=== PATIENT | male | born 1955 | race Caucasian/White ===

== ENCOUNTER 2023-07-03 10:00 | Outpatient (RCR) | payer MEDICARE, SELFPAY ==
--- NOTE | 2023-06-06 16:53 | OPREHPOC ---
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 Target Visit 8 PT Goal 2 Goal Pt to be able to lift 5lb overhead without an increase in symptoms. Target Visit 8 PT Problem 4 PT Problem #4 Impaired Sensation PT Goal 1 Goal Pt to decline altered sensation down the arm in the last week Target Visit 8 PT Problem 5 PT Problem #5 Pain PT Goal 1 Goal Pt to be able to sleep through the night without waking d/t pain Target Visit 8
--- NOTE | 2023-06-06 16:53 | PTOPEVAL1 ---
Assessment and note entered by Mike Rees, PT, DPT Evaluation Information Assessment Status Evaluation Diagnosis cervical radiculopathy Onset 2 weeks Subjective Information Pt reports he has a pinched nerve in his neck that is sending pain all the way down his arm down into his L little finger. Pt states this pain has been going on for 2 weeks without change. He declines a JENNIFER and states he just felt the pain when he woke up one morning. He reports a loss of strength in his L hand as well. He reports very low and sporadic pain in the neck, he states he has had this pain most his life but it has been mild enough to live with it. Pt is retired. 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 Reported Pain Level Pain Score 0: Self Report Assessment PT Clinical Summary Dipak presents to therapy today for his initial evaluation with a diagnosis of cervicalgia. Today he demonstrates decreased cervical ROM in all directions with radicular symptoms down his L arm all the way into his fingers, significantly decreasing his L excel analyst strength compared to his. His symptoms decrease some with passive cervical distraction. He also demonstrates a forward head and rounded shoulders in sitting. Skilled therapy services are indicated to improve UE strength, to decreased radicular symptoms, to manage pain, and to return to PLOF. Plan of Care Interventions Electrical Stimulation,Hot Pack/Cold Pack,Manual Therapy,Mechanical Traction,Neuro Re-education, Patient/Caregiver Educati,Therapeutic Activities, Therapeutic Exercise PT Services Indicated Yes Treatment Frequency and 2x/wk for 8 visits Duration These treatments will address the objective and functional deficits as defined above. The patient will be advanced safely and appropriately in order for the patient to progress towards his/her prior level of function. Additional exercises will be introduced and as well as a comprehensive home exercise program upon discharge, if needed, ?to ensure carryover of functional gains achieved in the clinic. This treatment plan has been reviewed and agreement upon by the patient.
--- NOTE | 2023-07-03 10:25 | PTOPDC ---
Assessment and note entered by Mike Rees, PT, DPT Evaluation Information Assessment Status Discharge Diagnosis cervical radiculopathy Onset 2 weeks Subjective Information Pt states he almost always has a little bit of numbness in his little finger and lateral side of his hand. He states he will sporadically get numbness other places in his arm, he states the stretches almost always alleviate the pain. He states he still has some tightness in his upper shoulders and neck but without much pain. Pt reports 90% improvement in overall symptoms. Pt states he has been able to return to playing his guitar and sleep without pain. Reported Pain Level Pain Score 0: Self Report Assessment PT Clinical Summary Dipak presents to therapy today for his progress report following 6 visits of skilled therapy to treat his cervicalgia with radiculopathy. Today he improvements in all of his subjective including pain and numbness. He demonstrates minimal improvements in cervical ROM. He has met or progressed well towards all of his therapy goals and will be discharged at this time. Plan of Care PT Services Indicated No
== END 2023-07-03 11:12 | disposition home or self-care (01) ==
LOC: ANHGOSHPT 10:00
PROVIDERS: PCP Family Medicine; Visit Provider Nurse Practitioner Family
DX: M25.519 Pain in unspecified shoulder (principal); M54.2 Cervicalgia; M79.603 Pain in arm, unspecified
CPT/HCPCS: 97012; 97110; 97140; 97161; 97530

== ENCOUNTER 2023-11-21 04:00 | Emergency (ER) | payer MEDICARE, SELFPAY ==
[2023-11-21] VITALS (14 sets, daily range): BP systolic 100–149; BP diastolic 67–79; PULSE 66–95; RESP 14–18; TEMP 36.6; O2SAT 95–100
--- NOTE | ~2023-11-21 | CT_ITS ---
Noncontrast CT scan of the cervical spine Technique: Multiple contiguous axial [address] images of the cervical spine were obtained and rec onstructed in 2D sagittal and coronal planes on the acquisition scanner. Dose reduction technique was used on this scan by utilizing automated exposure control, adjustment of the mA and/or kV according to patient size. The dose-length product (DLP) was 451.25 mGy-cm. Clinical History: Pain Findings: No fractures or dislocations. There is mild degenerative disc narrowing at C5-C6 and C6-C7 . There is probable bilateral neural foraminal narrowing at C5-C6 with mild disc ossify complex prese nt. No prevertebral soft tissue swelling. Impression: No fracture or subluxation of the cervical spine. Reviewed, dictated and finalized at [facility]. NNIAL HOUSE MANAGER Impression: No fracture or subluxation of the cervical spine.
--- NOTE | ~2023-11-21 | CT_ITS ---
Non-contrast Head CT History: Status post fall Technique: Axial non-contrast imaging of the brain was performed. Dose reduction technique was used on this scan by utilizing automated exposure control and iterative reconstruction technique. The dose -length product (DLP) was 605.33 mGy-cm. Findings: There is no evidence of intracranial hemorrhage, mass lesion, or acute infarct. Brain par enchyma appears normal. The ventricles and subarachnoid spaces are normal in size. The calvarium ap pears normal. The visualized paranasal sinuses and mastoid air cells are clear. Impression: No significant abnormality seen. Reviewed, dictated and finalized at location . INTELLIGENCE SPECIALIST Impression: No significant abnormality seen.
--- NOTE | 2023-11-21 06:49 | PC.NURSE ---
Pt states he was getting up from the toilet after having a BM and fell, hitting head. Thinks he was lightheaded but does not recall all events. States feels fine now. Pt axox4. Has approx 3cm lac to above R eyebrow. Bleeding controlled at this time.
--- NOTE | 2023-11-21 06:56 | ECG_ITS ---
Measurements Intervals [place] Rate: 74 P: 66 ND: 172 QRS: 48 QRSD: 111 T: 47 QT: 373 QTc: 415 Interpretive Statements SINUS RHYTHM NORMAL ELECTROCARDIOGRAM NO PREVIOUS ECG AVAILABLE FOR COMPARISON Electronically Signed On 11-21-2023 7:17:59 CARPENTRY TEACHER by Yonas Schmitt M.D.
--- NOTE | 2023-11-21 07:14 | PC.NURSE ---
Report to GEOFF Smith
--- NOTE | 2023-11-21 07:20 | ED.FALL ---
HPI - Fall General Chief Complaint: Fall Stated Complaint: fall Time Seen by Provider: 11/21/23 07:17 68 years old white male came to the emergency room by private car because of a fall. 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 Denies loss of consciousness or other injuries. His last tetanus shot within 5 years. Source: patient Related Data Home Medications Medication Instructions Recorded Confirmed cholecalciferol (vitamin D3) 50 50 mcg PO DAILY 09/24/23 11/05/23 mcg (2,000 unit) tablet fexofenadine 180 mg tablet 180 mg PO DAILY 09/24/23 11/05/23 (Bridget Allergy) Allergies Allergy/AdvReac Type Severity Reaction Status Date / Time No Known Allergies Allergy Verified 11/05/23 08:49 Review of Systems Review of Systems: All systems reviewed & are unremarkable except as noted in HPI and below PMFSH Past Medical History Medical History Anxiety Environmental allergies Erectile dysfunction Gout History of colonic polyps Hyperlipidemia Vitamin D deficiency Surgical History Surgical History History of hernia repair 9 - congenital inguinal hernia repair Family History Family History Other Family history of coronary artery disease Family history of pancreatic cancer Social History Social History Smoking status: Former smoker Tobacco type: cigarettes Second hand tobacco smoke exposure: No Smoking end date: 10/20/86 Alcohol intake: current Drinks per week: 21 Alcohol use details: 3 drinks daily Substance use: current Substance use type: marijuana Other substance usage details: smokes marijuana 3 times weekly Lack of Transportation: No Lack of Food: Never True Current Housing: I Have Housing Concerned About Future Housing: No Difficulty Paying Gas/Electric Bills: No Difficulty Paying for Meds: No Currently Unemployed: No Education: Master's Degree or Higher Difficulty w/ Childcare or Family Care: No Living arrangements: with family Occupation/Education: retired Gender identity (if verbalized by the patient): Male Spiritual care concerns: No Agree to blood products: Yes Exam Narrative: General appearance: Well-developed, well-nourished Skin: Normal color Head: Normocephalic, nontraumatic Eyes: Clear conjunctiva, 2 cm laceration right eyebrow, no active bleeding ENT: Oropharynx normal, ears normal, nose normal Neck: Supple, nontender Chest and respiratory: Airway patent, no respiratory distress, no accessory muscle use Heart: Regular rate/rhythm Abdomen: Soft, nontender, no organomegaly, quiet bowel sounds Vascular: Normal peripheral pulses, normal capillary refill. Musculoskeletal: Normal range of motion, nontender back Neurologic: Alert and oriented ?3, EXPRESSIVE THERAPIST is normal as tested, no gross motor deficit Course Vital Signs Vital signs: Vital Signs Temperature 36.6 C 11/21/23 04:05 Pulse Rate 73 11/21/23 04:05 Respiratory Rate 16 11/21/23 04:05 Blood Pressure 100/67 11/21/23 04:05 Pulse Oximetry 95 11/21/23 04:05 Oxygen Delivery Room Air 11/21/23 04:05 Temperature 36.6 C 11/21/23 04:05 Pulse Rate 76 11/21/23 07:01 Respiratory Rate 14 11/21/23 07:01 Blood Pressure 132/71 11/21/23 07:01 Pulse Oximetry 99 11/21/23 07:01 Oxygen Delivery Room Air 11/21/23 04:05
[2023-11-21 07:21] LABS: Basophils Absolute Auto 0.1 K/mm3 (0.0-0.1); Basophils Percent Auto 0.4 % (0.2-1.2); Eosinophils Percent Auto 0.3 % (0-4.4); Hematocrit 46.3 % (42.0-52.0); Hemoglobin 16.1 g/dL (14.0-18.0); Immature Granulocyte Absolute 0.05 K/mm3 (0.00-0.031); Immature Granulocyte Percent A 0.4 % (0-0.5); Lymphocytes Absolute Auto 1.15 K/mm3 (0.9-3.2); Mean Corpuscular HGB Conc 34.8 g/dl (32-36); Mean Corpuscular Hemoglobin 31.8 pg (26-34); Mean Corpuscular Volume 91.3 fl (80-100); Mean Platelet Volume 10.1 fl (7.4-10.4); Monocytes Absolute Auto 0.5 K/mm3 (0.1-0.6); Monocytes Percent Auto 4.1 % (2.6-8.5); Neutrophils Absolute Auto 9.7 K/mm3 (1.3-6.7); Neutrophils Percent Auto 84.8 % (45.5-73.1); Platelet Count Result 199 k/mm3 (150-375); Red Blood Count 5.07 M/mm3 (4.6-6.20); Red Cell Distribution Width 12.1 % (11.5-14.5); White Blood Count 11.5 K/mm3 (4.5-10.0)
[2023-11-21 07:37] LABS: Alanine Aminotransferase 31 U/L (6-50); Albumin Level 4.4 g/dL (3.5-5.1); Alkaline Phosphatase 95 U/L (38-126); Anion Gap 8 mmol/L (8-16); Aspartate Amino Transferase 32 U/L (17-59); Bilirubin,Total 1.2 mg/dL (0.2-1.3); Blood Urea Nitrogen 25 mg/dL (9-20); Calcium 9.4 mg/dL (8.4-10.2); Carbon Dioxide 28 mmol/L (22-30); Chloride 105 mmol/L (98-107); Estimated CRCL calculation 70 ml/min; Estimated Glomerular Filt Rate > 60; Glucose 126 mg/dL (65-110); Sodium 141 mmol/L (137-145)
[2023-11-21 07:46] LABS: Potassium 4.8 mmol/L (3.4-5.0)
--- NOTE | 2023-11-21 08:30 | PC.NURSE ---
Pt declined tetanus shot stated he was up to date and had it 4 years ago.
[2023-11-21] MEDS: LIDO 1%/EPINEPHRINE 1:100,000 20 ML VIAL (09:33)
== END 2023-11-21 09:59 | disposition home or self-care (01) ==
LOC: ANHED 09:30
PROVIDERS: Emergency Medicine; Emergency Provider Emergency Medicine; PCP Family Medicine
DX: S01.111A Laceration without foreign body of right eyelid and periocular area, initial encounter (principal); E78.5 Hyperlipidemia, unspecified; E55.9 Vitamin D deficiency, unspecified; M10.9 Gout, unspecified; Z86.010 Personal history of colon polyps; Z87.891 Personal history of nicotine dependence; W18.39XA Other fall on same level, initial encounter
CPT/HCPCS: 12011; 36415; 70450; 72125; 80053; 85025; 93005; 99284

== ENCOUNTER 2023-12-02 01:30 | Day surgery (SDC) | payer MEDICARE, SELFPAY ==
[2023-11-05 08:51] VITALS: BMI 27.8
--- NOTE | 2023-11-28 11:29 | SUR.PREOP ---
Patient called regarding upcoming procedure. VOICEMAIL LEFT REGARDING UPCOMING APPOINTMENT. INSTRUCTED TO CALL WITH ANY QUESTIONS. CONFIRMED TIME AND DATE.
--- NOTE | 2023-11-29 13:23 | PM.HPGS ---
History of Present Illness History of Present Illness Consent: Risks, benefits, and alternatives have been discussed and questions answered. Patient agrees to proceed with procedure. Chief complaint: History colon polyps Narrative: Dipak Frost is a 68 year old male referred for colon cancer screening. A little over 5 years ago he had a small polyp removed Review of Systems Review of Systems: All systems reviewed & are unremarkable except as noted in HPI and below PMFSH Past Medical History Medical History Anxiety Environmental allergies Erectile dysfunction Gout History of colonic polyps Hyperlipidemia Vitamin D deficiency Surgical History Surgical History History of hernia repair 1958 - congenital inguinal hernia repair Family History Family History Other Family history of coronary artery disease Family history of pancreatic cancer Social History Social History Smoking status: Former smoker Tobacco type: cigarettes Second hand tobacco smoke exposure: No Smoking end date: 10/20/86 Alcohol intake: current Drinks per week: 21 Alcohol use details: 3 drinks daily Substance use: current Substance use type: marijuana Other substance usage details: smokes marijuana 3 times weekly Lack of Transportation: No Lack of Food: Never True Current Housing: I Have Housing Concerned About Future Housing: No Difficulty Paying Gas/Electric Bills: No Difficulty Paying for Meds: No Currently Unemployed: No Education: Master's Degree or Higher Difficulty w/ Childcare or Family Care: No Living arrangements: with family Occupation/Education: retired Gender identity (if verbalized by the patient): Male Spiritual care concerns: No Agree to blood products: Yes Meds Home Medications and Allergies Home Medications Medication Instructions Recorded Confirmed Type alprazolam 0.25 mg tablet 0.25 mg PO BID PRN anxiety #60 tabs 09/04/22 12/02/23 Rx cholecalciferol (vitamin D3) 50 50 mcg PO DAILY 09/24/23 12/02/23 History mcg (2,000 unit) tablet fexofenadine 180 mg tablet 180 mg PO DAILY 09/24/23 12/02/23 History (Bridget Allergy) sildenafil 100 mg tablet 100 mg PO DAILY PRN sexual 09/24/23 11/25/23 Rx activity #30 tabs lisinopril 10 mg tablet 10 mg PO DAILY #90 tabs 10/21/23 12/02/23 Rx simvastatin 10 mg tablet 10 mg PO QHS #90 tabs 11/13/23 12/02/23 Rx indomethacin 75 mg 75 mg PO BID PRN gout flare ups 11/25/23 11/25/23 Rx capsule,extended release #30 caps Allergies Allergy/AdvReac Type Severity Reaction Status Date / Time No Known Allergies Allergy Verified 12/02/23 06:17 Exam Resp: Auscultation: clear to auscultation bilaterally Cardio: Rate: regular rate Rhythm: regular rhythm GI: GI Palp: Yes Soft to palpation and No Tenderness to palpation present (GI) Assessment and Plan Assessment and plan (1) Colon cancer screening: Code(s): Z12.11 - Encounter for screening for malignant neoplasm of colon Status: Acute Assessment and Plan: Colonoscopy with possible biopsy or polypectomy or cautery or injection of substances.
[2023-12-02 06:19] VITALS: BP 106/73; PULSE 88; RESP 18; TEMP 36.3; O2SAT 100; BMI 27.2
[2023-12-02] MEDS: LACTATED RINGERS 1,000 ML 150 ML IV CONT (06:21)
--- NOTE | 2023-12-02 07:20 | WPDANESEPPF ---
Anes - Initial Pre Proc Eval Procedure: Operation Date: 12/02/23 07:30 Proposed Procedures p Colonoscopy - Jerry Oglesby MD Date/Time: 12/02/23 07:20 Surgeon: Jerry Oglesby MD Pre Op Diagnosis: History colon polyps Patient Data Age: 68 Gender: M Height: 1.83 m Weight: 91.2 kg Last Vital Signs Temp 97.3 F L 12/02/23 06:19 Pulse 88 12/02/23 06:19 Resp 18 12/02/23 06:19 BP 106/73 12/02/23 06:19 Pulse Ox 100 12/02/23 06:19 O2 Del Method Room Air 12/02/23 06:19 Allergies Allergy/AdvReac Type Severity Reaction Status Date / Time No Known Allergies Allergy Verified 12/02/23 06:17 Home Medications Medication Instructions Recorded Confirmed Type alprazolam 0.25 mg tablet 0.25 mg PO BID PRN anxiety #60 tabs 09/04/22 12/02/23 Rx cholecalciferol (vitamin D3) 50 50 mcg PO DAILY 09/24/23 12/02/23 History mcg (2,000 unit) tablet fexofenadine 180 mg tablet 180 mg PO DAILY 09/24/23 12/02/23 History (Bridget Allergy) sildenafil 100 mg tablet 100 mg PO DAILY PRN sexual 09/24/23 11/25/23 Rx activity #30 tabs lisinopril 10 mg tablet 10 mg PO DAILY #90 tabs 10/21/23 12/02/23 Rx simvastatin 10 mg tablet 10 mg PO QHS #90 tabs 11/13/23 12/02/23 Rx indomethacin 75 mg 75 mg PO BID PRN gout flare ups 11/25/23 11/25/23 Rx capsule,extended release #30 caps Patient hx anesthesia problems: none Family hx anesthesia problems: none Results Review: All pre-operative results and documents have been reviewed as part of the pre-operative evaluation. [facility] Past Medical History Medical History Anxiety Environmental allergies Erectile dysfunction Gout History of colonic polyps Hyperlipidemia Vitamin D deficiency Surgical History Surgical History History of hernia repair 1958 - congenital inguinal hernia repair Family History Family History Other Family history of coronary artery disease Family history of pancreatic cancer Social History Social History Smoking status: Former smoker Tobacco type: cigarettes Second hand tobacco smoke exposure: No Smoking end date: 10/20/86 Alcohol intake: current Drinks per week: 21 Alcohol use details: 3 drinks daily Substance use: current Substance use type: marijuana Other substance usage details: smokes marijuana 3 times weekly Lack of Transportation: No Lack of Food: Never True Current Housing: I Have Housing Concerned About Future Housing: No Difficulty Paying Gas/Electric Bills: No Difficulty Paying for Meds: No Currently Unemployed: No Education: Master's Degree or Higher Difficulty w/ Childcare or Family Care: No Living arrangements: with family Occupation/Education: retired Gender identity (if verbalized by the patient): Male Spiritual care concerns: No Agree to blood products: Yes Anes - Eval Final PreProcedure Day of Procedure 12/02/23 07:20 Patient weight: normal Heart: regular rate and rhythm Lungs: clear to auscultation Airway: Mallampati scale class II Neurological: alert and oriented Last oral intake: >/= 8 hours ASA classification: II Emergent: no Anesthetic plan: proceed Anesthesia type and monitoring: general GIVS and standard monitoring Results Review: All pre-operative results and documents have been reviewed as part of the pre-operative evaluation. Informed Consent: The patient's anesthetic plan and its attendant risks and benefits were discussed with the patient/family/POA. Questions were solicited and answers provided to the satisfaction of the patient/family/POA.
[2023-12-02] MEDS: SIMETHICONE ORAL SUSPENSION 20 MG/0.3 ML 30 ML BOTTLE 0.6 ML IRRIGATION (07:36)
[2023-12-02 07:43] VITALS: BP 93/57; PULSE 68; RESP 14; O2SAT 96
[2023-12-02 07:53] VITALS: BP 115/72; PULSE 73; RESP 24; O2SAT 100
[2023-12-02 08:03] VITALS: BP 120/73; PULSE 68; RESP 19; O2SAT 100
== END 2023-12-02 08:10 | disposition home or self-care (01) ==
PROVIDERS: PCP Family Medicine; Visit Provider Internal Medicine Gastroenterology
PROC: 0DJD8ZZ Inspection of Lower Intestinal Tract, Via Natural or Artificial Opening Endoscopic (ICD-10-PCS; CPT 45378; principal; 2023-12-02 07:30)
DX: Z12.11 Encounter for screening for malignant neoplasm of colon (principal); K63.5 Polyp of colon; K64.8 Other hemorrhoids; E78.5 Hyperlipidemia, unspecified; E55.9 Vitamin D deficiency, unspecified; M10.9 Gout, unspecified; F41.9 Anxiety disorder, unspecified; Z87.891 Personal history of nicotine dependence; F12.90 Cannabis use, unspecified, uncomplicated
CPT/HCPCS: 45380; 88305; J2704; J7120

== ENCOUNTER 2024-11-10 08:06 | Outpatient (CLI) | payer MEDICARE, SELFPAY ==
[2024-12-02 14:18] VITALS: BMI 27.1
--- NOTE | 2024-12-02 14:18 | WPDHOMESLEEP ---
Sleep Study - Home Unattended Date of Study: 11/10/24 Ordering Provider: Marshall De Dios MD Interpreting Provider: Ana Paula Gentile, DO Home Sleep Study Type: Watch PAT Height: 1.83 m Weight: 90.718 kg Body Mass Index: 27.1 Neck Circumference (inches): 16 [place]: 12 Reason for Sleep Study Daytime hypersomnia Sleep History The patient is a 69-year-old male that had a sleep study ordered for evaluation of sleep apnea. The patient occasionally awakens from sleep short of breath. He occasionally awakens at night with heartburn, belching cough. He frequently snores loudly enough that others complain. He frequently has trouble sleeping when he has a cold. He rarely wakes up gasping for air throughout the night. He occasionally has breathing problems at night observed by himself or others. He occasionally sweats excessively at night. He rarely has heart palpitations or irregular heartbeats during the night. He occasionally falls asleep during the day but never while driving. He denies sleep paralysis, cataplexy and hypnagogic/ hypnopompic hallucinations. He denies having trouble at school or work due to sleepiness. He denies feeling afraid of going to sleep. He rarely has nightmares. He rarely remembers his dreams. He occasionally has thoughts racing through his mind. He rarely feels sad or depressed. He occasionally has anxiety. He occasionally has muscular tension. He occasionally notices parts of his body jerk. He denies kicking during the night. He occasionally has crawling and aching feelings in his legs but never has leg pain during the. He occasionally grinds his teeth during sleep but never awakens with morning jaw pain. He is rarely bothered by pain during the day and never awakened by pain during the night. He occasionally wakes up feeling stiff in the morning. He denies waking up with sore achy muscles. He occasionally wakes up with pain neck, spine other. He goes to bed at 10:30 p.m. on both weekdays and weekends. It takes him 30 minutes to fall asleep. He wakes up 2 times throughout the night to urinate and is able to fall back asleep within 15 minutes. He wakes up at 6:00 a.m. on both weekdays and weekends. He typically gets 7 hours of sleep per night. He will stay in bed for 10 minutes after waking morning. He currently lives with his . He denies consuming any caffeinated beverages within 2 hours of bedtime. He denies engaging in physical before bedtime. He will read before falling asleep. He denies watching television before falling asleep. He will take naps in afternoon or the evening and they are refreshing. He consumes 4 caffeinated beverages per day. He quit smoking cigarettes 30 years ago. He consumes half of an alcoholic beverage per day. He does use THC recreationally. [facility] Past Medical History Medical History History of colonic polyps Environmental allergies Vitamin D deficiency Anxiety Erectile dysfunction Gout Hyperlipidemia Surgical History Surgical History History of hernia repair 1958 - congenital inguinal hernia repair Family History Family History Other Family history of coronary artery disease Family history of pancreatic cancer Social History Social History Smoking status: Former smoker Tobacco type: cigarettes Second hand tobacco smoke exposure: No Smoking end date: 10/20/86 Alcohol intake: current Drinks per week: 21 Alcohol use details: 3 drinks daily Substance use: current Substance use type: marijuana Other substance usage details: smokes marijuana 3 times weekly Lack of Transportation: No Lack of Food: Never True Current Housing: I Have Housing Concerned About Future Housing: No Difficulty Paying Gas/Electric Bills: No Difficulty Paying for Meds: No Currently Unemployed: No Education: Master's Degree or Higher Difficulty w/ Childcare or Family Care: No Living arrangements: with family Occupation/Education: retired Gender identity (if verbalized by the patient): Male Spiritual care concerns: No Agree to blood products: Yes Medications Home Medications ?Medication ?Instructions ?Recorded ?Confirmed ?Type alprazolam 0.25 mg tablet 0.25 mg PO BID PRN anxiety #60 tabs 09/04/22 09/22/24 Rx cholecalciferol (vitamin D3) 50 50 mcg PO DAILY 09/24/23 09/22/24 History mcg (2,000 unit) tablet sildenafil 100 mg tablet 100 mg PO DAILY PRN sexual 09/24/23 09/22/24 Rx activity #30 tabs simvastatin 10 mg tablet 10 mg PO QHS #90 tabs 09/06/24 09/22/24 Rx lisinopril 10 mg tablet 10 mg PO DAILY #90 tabs 11/02/24 Rx Sleep Procedure The sleep study was completed using [employer] a technically adequate device with seven channels: peripheral arterial tone, actigraphy, body position, snore, respiratory movement, pulse oximetry, sleep staging, and heart rate. Prior to using the device, the patient received verbal and written instructions for its application and was provided with the help desk phone number for additional telephonic instruction with 24-hour availability of qualified personnel to answer questions. The study was scored using CMS guidelines. Sleep Architecture The total recording time is 7 hrs, 48 min. The total sleep time is 7 hrs, 3 min. Sleep latency is 23 minutes. REM latency is 26 minutes. The patient had 4 episodes of waking. Sleep architecture shows 17.3% deep sleep, 64.1% light sleep, and (as % Total Sleep Time) showed NREM (Light 64.1%; Deep 17.3%), and a 18.6% stage REM. The patient spent 32.8% of total sleep time in the supine position. Sleep efficiency was 90.38. Respiratory Analysis The overall AHI (pAHI 4%:) is 12.0. The central AHI is 0.3. The AHI was 12.6 in NREM and 8.7 in REM sleep. The AHI was 31.8 in Supine and 2.0 in Non-supine sleep. Percent of Momo Harper respirations is 0.0. Oximetry Data The oxygen desaturation index (MARIBELL 4%:) is 11.7. The mean saturation is 95%, and the lowest saturation is 86%. Time spent with saturation < 88% is 1.8 minutes. Snoring Profile Snoring average intensity is 41 dB. The patient snored above 45 decibels for 45.2 minutes, 10.7% of sleep time. Cardiac Profile The average pulse rate is 56 beats per minutes. The lowest pulse rate is 37 bpm. The highest pulse rate reported is 88 bpm. Atrial fibrillation was not detected. Premature beats occur <0.1 per minute. Assessment and Plan Assessment and Plan (1) LISANDRO (obstructive sleep apnea): Code(s): G47.33 - Obstructive sleep apnea (adult) (pediatric) Status: Acute Assessment and Plan: The patient had an overall AHI 12.0 with desaturation down to 86%. This is consistent with mild sleep apnea. Due to the patient's hypertension, he qualifies for treatment. I recommend that the patient be prescribed Resmed AutoPAP 5-15 cm H2O, CPAP mask/filters/tubing and heated humidity. This should be used with all episodes of sleep.? Compliance should be reviewed within 31-90 days of starting therapy for usage greater than 4 hours per night greater than 70% of the nights. The patient should be asked about symptoms such as?excessive daytime sleepiness, quality of sleep, decreased nocturia, increased?mental functioning such as memory, mood, and concentration. Data The data obtained during this sleep study is adequate for interpretation. Certification This sleep study has been reviewed by a board certified sleep medicine physician.
== END 2024-11-11 12:56 | disposition home or self-care (01) ==
LOC: ANHCSM 08:07
PROVIDERS: PCP Family Medicine; Visit Provider Family Medicine
DX: G47.10 Hypersomnia, unspecified (principal); R40.0 Somnolence; G47.33 Obstructive sleep apnea (adult) (pediatric)
CPT/HCPCS: 95800